=== PATIENT | male | born 1945 | race Caucasian/White ===

== ENCOUNTER 2016-11-28 17:40 | Inpatient (IN) | payer OTHER ==
[~2016-11-28] VITALS: Ht 185.4 cm; Wt 94.0 kg
[2016-11-28 18:06] LABS: Basophils # (auto) 0 uL; Basophils % (auto) 0.1 % (0.0-2.0); Eosinophils # (auto) 0 uL; Hematocrit 40.2 % (41.0-53.0); Hemoglobin 13.5 g/dL (13.5-17.5); Lymphocytes # (auto) 0.2 uL; Lymphocytes % (auto) 2.8 % (10.0-50.0); Mean Corpuscular Hemoglobin 29.4 pg (28.0-32.0); Mean Corpuscular Hgb Conc. 33.5 g/dL (32.0-36.0); Mean Corpuscular Volume 87.7 fL (80.0-100.0); Mean Platelet Volume 7.2 fL (7.4-10.4); Monocytes # (auto) 0.3 uL; Monocytes % (auto) 5.6 % (0.0-12.0); Neutrophils # (auto) 5.4 uL; Neutrophils % (auto) 91.5 % (37.0-80.0); Platelet Count (auto) 142 10^3/uL (140-450); Red Cell Distribution Width 14.2 % (11.6-16.0); White Blood Cell 5.9 10^3/uL (4.4-10.8)
[2016-11-28 18:23] LABS: Albumin 2.8 g/dL (3.4-5.0); BUN/Creatinine Ratio 12.5; Calcium 8.5 mg/dL (8.5-10.1); Potassium 4.7 mmol/L (3.5-5.1)
[2016-11-28 18:25] LABS: INR 1.33 (0.9-1.15); Partial Thromboplastin Time 30.8 sec (22.64-33.71); Prothrombin Time 13.7 sec (9.37-12.3)
[2016-11-28 18:26] LABS: Total Protein 6.6 g/dL (6.4-8.2)
[2016-11-28] MEDS ORDERED: ETOMIDATE (2MG/ML) 20ML VIAL IV ONE ×2 (18:43→18:45)
[2016-11-28] MEDS ORDERED: SUCCINYLCHOLINE CHLORIDE 20 MG/ML 10ML VIAL IV ONE ×2 (18:43→18:45)
[2016-11-28 18:53] LABS: B-Type Natriuretic Peptide 370.38 pg/mL (0-100); Temperature: 22.3 C (20.0-25.0)
[2016-11-28 19:00] VITALS: BP 109/50
[2016-11-28] MEDS ORDERED: PROPOFOL 100 ML IV ONE (19:06)
[2016-11-28] MEDS ORDERED: TACR1CAP4 PO (19:50)
[2016-11-28] MEDS ORDERED: POTA10TA34 PO (19:51)
[2016-11-28] MEDS ORDERED: SULI200T4 PO (19:52)
[2016-11-28] MEDS ORDERED: POTA-165 PO (19:57)
[2016-11-28] MEDS ORDERED: FURO40TA4 PO (19:59)
[2016-11-28] MEDS ORDERED: ALLO100T PO (20:00)
[2016-11-28] MEDS ORDERED: MULTTAB99 GT (20:01)
[2016-11-28] MEDS ORDERED: ASCO-22 PO (20:01)
[2016-11-28] MEDS ORDERED: ASPI81TA27 PO (20:02)
[2016-11-28] MEDS ORDERED: TERA10CA36 PO (20:04)
[2016-11-28] MEDS ORDERED: CYAN250L PO (20:05)
[2016-11-28] MEDS ORDERED: FLUO1TAB3 PO (20:05)
[2016-11-28] MEDS: MIDAZOLAM DRIP 100 mg/100mL NS 100 ML IV SCH (20:07)
[2016-11-28] MEDS: PROPOFOL 100 ML IV SCH (20:07)
[2016-11-28 21:41] VITALS: BP 118/81
[2016-11-28] MEDS ORDERED: MORPHINE SULF INJ 2 MG/ML SYRINGE 1ML IV PRN (23:15)
[2016-11-28] MEDS ORDERED: VANCOMYCIN PER PHARMACY 0 MG IV SCH (23:15)
[2016-11-28] MEDS ORDERED: LACTULOSE 20Gm/30ML SOLN PO PRN (23:15)
[2016-11-28] MEDS ORDERED: ASPirin 81 mg TAB NG ONE (23:15)
[2016-11-28] MEDS ORDERED: VANCOMYCIN 1GM/250ML D5W 250 ML IV ONE (23:15)
[2016-11-28] MEDS ORDERED: NITROGLYCERIN 0.4 MG SL TAB SL PRN (23:15)
[2016-11-28] MEDS ORDERED: DEXTROSE (50%) 50ML SYRG IV PRN (23:15)
[2016-11-28] MEDS ORDERED: PANTOPRAZOLE SODIUM 40 MG/10 ML VIAL IV ONE (23:15)
[2016-11-28] MEDS: ACCU-CHEK COMFORT CURVE STRIP VI SCH (23:53)
[2016-11-28] MEDS: methylPREDNISolone SOD SUCC 125 MG/2 ML VL IV SCH (23:53)
[2016-11-28] MEDS: ENOXAPARIN SOD 120 MG/0.8 ML SYRINGE SC SCH (23:53)
[2016-11-28] MEDS: InsuLIN REG 1unit/0.01ml Soln (100units/ml) SC SCH (23:59)
[2016-11-29] VITALS (88 sets, daily range): BP systolic 75–130; BP diastolic 35–81
[2016-11-29] MEDS: PIPERACILLIN-TAZOB 3.375GM 100 ML IV SCH ×3 (01:38→12:00)
[2016-11-29 03:41] LABS: Basophils # (auto) 0 uL; Eosinophils # (auto) 0 uL; Hematocrit 41.1 % (41.0-53.0); Hemoglobin 13.4 g/dL (13.5-17.5); Lymphocytes # (auto) 0.2 uL; Lymphocytes % (auto) 3.5 % (10.0-50.0); Mean Corpuscular Hemoglobin 28.8 pg (28.0-32.0); Mean Corpuscular Hgb Conc. 32.5 g/dL (32.0-36.0); Mean Corpuscular Volume 88.7 fL (80.0-100.0); Mean Platelet Volume 7.7 fL (7.4-10.4); Monocytes # (auto) 0.1 uL; Monocytes % (auto) 1.3 % (0.0-12.0); Neutrophils # (auto) 5.8 uL; Neutrophils % (auto) 95.2 % (37.0-80.0); Platelet Count (auto) 153 10^3/uL (140-450); Red Cell Distribution Width 14.5 % (11.6-16.0); White Blood Cell 6.1 10^3/uL (4.4-10.8)
[2016-11-29 04:06] LABS: Albumin 2.9 g/dL (3.4-5.0); BUN/Creatinine Ratio 14.4; Bilirubin, Total 0.7 mg/dL (0.2-1.0); Calcium 8.8 mg/dL (8.5-10.1); Potassium 5.4 mmol/L (3.5-5.1); Total Protein 6.5 g/dL (6.4-8.2)
[2016-11-29] MEDS: PROPOFOL 100 ML IV SCH ×2 (05:58→21:36)
[2016-11-29] MEDS: MIDAZOLAM DRIP 100 mg/100mL NS 100 ML IV SCH (06:01)
[2016-11-29] MEDS: ACCU-CHEK COMFORT CURVE STRIP VI SCH ×2 (06:01→12:50)
[2016-11-29] MEDS: InsuLIN REG 1unit/0.01ml Soln (100units/ml) SC SCH ×2 (06:05→14:43)
[2016-11-29] MEDS: IPRATROPIUM BROM 0.5 MG/2.5ML INH SOL NEB SCH ×4 (06:36→18:26)
[2016-11-29] MEDS: ALBUTEROL SULF 2.5 MG/0.5ML(0.5%) NEB SOLN NEB SCH ×4 (06:36→18:26)
[2016-11-29] MEDS ORDERED: PANTOPRAZOLE SODIUM 40 MG/10 ML VIAL IV SCH (10:00)
[2016-11-29] MEDS ORDERED: ASPirin 81 mg TAB NG SCH (10:00)
[2016-11-29] MEDS: methylPREDNISolone SOD SUCC 125 MG/2 ML VL IV SCH (11:00)
[2016-11-29] MEDS: ENOXAPARIN SOD 120 MG/0.8 ML SYRINGE SC SCH (11:00)
[2016-11-29] MEDS ORDERED: VANCOMYCIN 1GM/250ML D5W 250 ML IV ONE (12:00)
[2016-11-29] MEDS ORDERED: VANCOMYCIN 1,250 MG in D5W 5% 250 ML IV SCH (15:00)
[2016-11-29] MEDS ORDERED: ONDANSETRON HCL 4 MG/2 ML VIAL IV PRN (18:30)
[2016-11-29] MEDS ORDERED: DOCUSATE SOD 100 MG CAP PO PRN (18:30)
[2016-11-29] MEDS: LORazepam 2MG/ML-1ML VIAL IV PRN ×2 (21:37→23:38)
[2016-11-29] MEDS: HYDROmorphone HCL 2 MG/ML VL IV PRN ×2 (21:37→23:38)
[2016-11-30] VITALS (54 sets, daily range): BP systolic 69–118; BP diastolic 34–71
[2016-11-30] MEDS: LORazepam 2MG/ML-1ML VIAL IV PRN ×4 (02:03→07:59)
[2016-11-30] MEDS: HYDROmorphone HCL 2 MG/ML VL IV PRN ×6 (02:03→12:58)
== END 2016-11-30 19:25 | disposition expired | DRG 871 ==
LOC: ER 17:42 → ICU WEST 17:43
PROVIDERS: ADMIT Family Medicine; ATTEND Internal Medicine Pulmonary Disease
PROC: 5A1935Z Respiratory Ventilation, Less than 24 Consecutive Hours (ICD-10-PCS; principal; 2016-11-29)
PROC: 0BH17EZ Insertion of Endotracheal Airway into Trachea, Via Natural or Artificial Opening (ICD-10-PCS; 2016-11-29)
DX: A41.9 Sepsis, unspecified organism (principal); J18.9 Pneumonia, unspecified organism; J96.21 Acute and chronic respiratory failure with hypoxia; E44.1 Mild protein-calorie malnutrition; J84.112 Idiopathic pulmonary fibrosis; R65.20 Severe sepsis without septic shock; N18.3 Chronic kidney disease, stage 3 (moderate); E11.22 Type 2 diabetes mellitus with diabetic chronic kidney disease; E11.65 Type 2 diabetes mellitus with hyperglycemia; Z68.27 Body mass index [BMI] 27.0-27.9, adult; Z85.528 Personal history of other malignant neoplasm of kidney; Z51.5 Encounter for palliative care; Z66 Do not resuscitate
CPT/HCPCS: 31500; 36415; 36600; 51702; 71010; 80053; 80061; 80202; 82805; 82962; 83036; 83605; 83735; 83880; 84484; 85025; 85049; 85379; 85610; 85730; 87040; 87081; 93005; 93970; 94002; 94003; 94640; 94660; 94761; 96365; 96375; C9113; J0330; J2543; J2704; J7060